=== PATIENT | female | born 1945 | race Caucasian/White ===

== ENCOUNTER → 2023-04-08 16:56 | Outpatient (REF) | payer MEDICARE, SELFPAY | LOC: HWRAD 16:56 | PROVIDERS: ATTENDING PHYSICIAN Internal Medicine Critical Care Medicine; FAMILY PHYSICIAN Family Medicine | DX: R06.02 Shortness of breath (principal); J90 Pleural effusion, not elsewhere classified | CPT/HCPCS: 71046 ==

== ENCOUNTER → 2023-04-17 10:34 | Outpatient (REF) | payer OTHER, SELFPAY ==
[2023-04-17 11:18] VITALS: BP 123/67; BP_SYST 87
[2023-04-17 12:14] VITALS: BP 118/58; BP_SYST 87
[2023-04-17 12:35] LABS: Body Fluid Mononuclear 90.9 %; Body Fluid Polymorphonuclear 9.1 %; Body Fluid WBC 263 /CUMM
[2023-04-17 12:41] LABS: Body Fluid Second Tech BD
[2023-04-17 13:07] LABS: Body Fluid Glucose 101 mg/dl; Body Fluid Protein 3.6 g/dl
[2023-04-17 14:28] LABS: Body Fluid LDH 121 U/L
== END ==
LOC: RADI 10:34
PROVIDERS: ATTENDING PHYSICIAN Internal Medicine Critical Care Medicine; FAMILY PHYSICIAN Family Medicine
DX: J90 Pleural effusion, not elsewhere classified (principal)
CPT/HCPCS: 88305; 32555; 71045; 82945; 83615; 83986; 84157; 87015; 87070; 87102; 87116; 87205; 87206; 88112; 88341; 88342; 89051

== ENCOUNTER → 2023-05-13 12:23 | Outpatient (REF) | payer OTHER, SELFPAY | LOC: HWRAD 12:23 | PROVIDERS: ATTENDING PHYSICIAN Internal Medicine Critical Care Medicine; FAMILY PHYSICIAN Family Medicine | DX: J90 Pleural effusion, not elsewhere classified (principal); R06.02 Shortness of breath; J98.4 Other disorders of lung; R06.89 Other abnormalities of breathing | CPT/HCPCS: 71046 ==

== ENCOUNTER → 2023-06-14 13:59 | Outpatient (REF) | payer OTHER, SELFPAY | LOC: HWRAD 13:59 | PROVIDERS: ATTENDING PHYSICIAN Internal Medicine Critical Care Medicine; FAMILY PHYSICIAN Family Medicine | DX: J90 Pleural effusion, not elsewhere classified (principal); R06.02 Shortness of breath | CPT/HCPCS: 71046 ==

== ENCOUNTER → 2023-07-17 12:31 | Outpatient (REF) | payer OTHER, SELFPAY ==
[2023-07-17 18:41] LABS: % Basophils 0.7 % (0-2); % Eosinophils 0.7 % (0-6); % Immature Granulocytes 0.3 % (0-0.5); % Lymphocytes 12.5 % (20.5-51.1); % Monocytes 4.2 % (1.7-9.3); % Neutrophils 81.6 % (42.2-75.2); Absolute Basophils 0.1 10^3/uL (0-0.2); Absolute Eosinophils 0.1 10^3/uL (0-0.7); Absolute Lymphocytes 0.9 10^3/uL (1.2-3.4); Absolute Monocytes 0.3 10^3/uL (0.1-0.6); Absolute Neutrophils 5.7 10^3/uL (1.4-6.5); Hematocrit 37.2 % (37.0-47.0); Hemoglobin 10.8 g/dL (12.0-16.0); Mean Corpuscular Hgb 22.3 pg (27.0-31.0); Mean Corpuscular Volume 76.9 fL (81.0-99.0); Mean Platelet Volume 8.4 fL (7.4-10.4); Nucleated Red Blood Cells % 0 %; Platelet Count 315 10^3/uL (130-400); Red Blood Cell Count 4.84 10^6/uL (4.20-5.40); Red Cell Dist. Width 20.6 % (11.5-14.5)
[2023-07-17 18:54] LABS: ALT (SGPT) 12 U/L (0-35); AST (SGOT) 22 U/L (14-36); Albumin 4.2 g/dl (3.5-5.0); Alkaline Phosphatase 79 U/L (38-126); Blood Urea Nitrogen 15 mg/dl (7-17); Calcium 9.2 mg/dl (8.4-10.2); Carbon Dioxide 28 mmol/L (22-30); Chloride 105 mmol/L (98-107); Glucose 102 mg/dl (70-99); HDL Cholesterol 70 mg/dl; Iron 34 ug/dl (37-170); LDL Cholesterol, Calculated 86 mg/dl; Potassium 5.1 mmol/L (3.5-5.1); Sodium 139 mmol/L (135-145); Total Bilirubin 0.3 mg/dl (0.2-1.3); Total Cholesterol 185 mg/dl (50-199); Total Protein 6.6 g/dl (6.3-8.2); Triglyceride 148 mg/dl (10-149); Very Low Density Lipoprotein 29 mg/dl (0-30); eGFR > 60.00
[2023-07-17 19:03] LABS: Percent Saturation 7 % (20-50); Total Iron Binding Capacity 436 ug/dl (265-497)
[2023-07-17 19:28] LABS: Ferritin 13.9 ng/ml (11.1-264.0)
== END ==
LOC: CLAB 12:31
PROVIDERS: ATTENDING PHYSICIAN Family Medicine
DX: Z12.31 Encounter for screening mammogram for malignant neoplasm of breast (principal); M79.7 Fibromyalgia; E87.1 Hypo-osmolality and hyponatremia; E03.9 Hypothyroidism, unspecified; I25.10 Atherosclerotic heart disease of native coronary artery without angina pectoris; J90 Pleural effusion, not elsewhere classified; I25.810 Atherosclerosis of coronary artery bypass graft(s) without angina pectoris; I31.39 Other pericardial effusion (noninflammatory); U09.9 Post COVID-19 condition, unspecified
CPT/HCPCS: 36415; 80053; 80061; 82728; 83540; 83550; 84443; 85025

== ENCOUNTER → 2024-02-21 10:46 | Outpatient (REF) | payer OTHER, SELFPAY ==
[2024-02-21 12:50] VITALS: BP 166/88; BP_SYST 86
[2024-02-21] MEDS: TYLENOL 650 MG PO (13:32)
== END ==
LOC: RADI 10:46
PROVIDERS: ATTENDING PHYSICIAN Internal Medicine Critical Care Medicine; FAMILY PHYSICIAN Family Medicine
DX: J90 Pleural effusion, not elsewhere classified (principal); R06.02 Shortness of breath
CPT/HCPCS: 32555; 71045; 71046

== ENCOUNTER → 2024-04-17 12:58 | Outpatient (REF) | payer OTHER, SELFPAY ==
[2024-04-17 15:29] LABS: % Basophils 0.9 % (0-2); % Eosinophils 1.2 % (0-6); % Immature Granulocytes 0.3 % (0-0.5); % Lymphocytes 21.6 % (20.5-51.1); % Monocytes 5.8 % (1.7-9.3); % Neutrophils 70.2 % (42.2-75.2); Absolute Basophils 0.1 10^3/uL (0-0.2); Absolute Eosinophils 0.1 10^3/uL (0-0.7); Absolute Lymphocytes 1.4 10^3/uL (1.2-3.4); Absolute Monocytes 0.4 10^3/uL (0.1-0.6); Absolute Neutrophils 4.7 10^3/uL (1.4-6.5); Hematocrit 41.6 % (37.0-47.0); Hemoglobin 13.1 g/dL (12.0-16.0); Mean Corp Hgb Conc. 31.5 g/dL (33.0-37.0); Mean Corpuscular Hgb 27.8 pg (27.0-31.0); Mean Corpuscular Volume 88.1 fL (81.0-99.0); Mean Platelet Volume 8.2 fL (7.4-10.4); Nucleated Red Blood Cells % 0 %; Platelet Count 274 10^3/uL (130-400); Red Blood Cell Count 4.72 10^6/uL (4.20-5.40); Red Cell Dist. Width 14.6 % (11.5-14.5); White Blood Cell Count 6.7 10^3/uL (4.8-10.8)
[2024-04-17 15:39] LABS: ALT (SGPT) 16 U/L (0-35); AST (SGOT) 21 U/L (14-36); Albumin 4.3 g/dl (3.5-5.0); Alkaline Phosphatase 80 U/L (38-126); Calcium 9.3 mg/dl (8.4-10.2); Carbon Dioxide 30 mmol/L (22-30); Chloride 101 mmol/L (98-107); Glucose 91 mg/dl (70-99); Potassium 4.9 mmol/L (3.5-5.1); Sodium 137 mmol/L (135-145); Total Bilirubin 0.7 mg/dl (0.2-1.3); Total Protein 6.5 g/dl (6.3-8.2); eGFR > 60.00
[2024-04-17 15:42] LABS: C-Reactive Protein < 5.00 mg/L (0.0-10.00)
[2024-04-17 15:48] LABS: Blood Urea Nitrogen 25 mg/dl (7-17)
[2024-04-17 15:58] LABS: Vitamin D, 25-OH*** < 12.8 ng/mL (30-80)
[2024-04-20 07:46] LABS: ANA, IgG Reflex to HEp-2 None Detected (None Detected)
== END ==
LOC: HWRAD 12:58
PROVIDERS: ATTENDING PHYSICIAN Internal Medicine Rheumatology; FAMILY PHYSICIAN Family Medicine
DX: G24.8 Other dystonia (principal); G89.4 Chronic pain syndrome; M19.022 Primary osteoarthritis, left elbow; M25.512 Pain in left shoulder; E55.9 Vitamin D deficiency, unspecified; G47.33 Obstructive sleep apnea (adult) (pediatric); J90 Pleural effusion, not elsewhere classified; M35.9 Systemic involvement of connective tissue, unspecified
CPT/HCPCS: 36415; 73030; 73080; 80053; 82306; 85025; 86038; 86140; 86430; 86618

== ENCOUNTER 2024-05-03 14:40 | Emergency (ER) | payer OTHER, SELFPAY ==
[2024-05-03 14:47] VITALS: BP 160/85
[2024-05-03 16:00] VITALS: BP 149/74
--- NOTE | 2024-05-03 16:51 | ED.GENMED ---
History of Present Illness
General
Chief Complaint: Musculo-Skeletal Complaint
Source: patient
Exam Limitations: none
Time Seen by Provider: 05/03/24 16:29
Nursing documentation reviewed up to this point in time: agreed with
History of Present Illness
History of Present Illness:
78-year-old female with past medical history of A-fib on Eliquis, coronary artery disease, GERD, who presents emergency department today with concerns of right hip pain for the past week. Patient states that this started all started when she was
sitting on the couch at her home, she states that there was no trauma inciting the pain. She denies any recent falls. She states that she has tried Tylenol, Motrin without relief. Patient states that she feels the pain in the right hip/buttocks
area and will radiate to the upper thigh. Patient denies any back pain. Patient denies any urinary symptoms or hematuria, denies any belly pain, nausea or vomiting. Patient states that she has had similar hip pain in the past which has resolved
with [id number] medications but this pain is not resolving and seems more intense. She is able to ambulate and bear weight without difficulty. She denies any low back pain, she denies any weakness in her lower extremities, she denies any
lower extremity paresthesias, denies any loss of bowel or bladder.
Past History
Past History
ED Past Medical History: Arrthythmia (A-fib on Eliquis), CAD, CHF, GERD, HTN, Hypercholesterolemia, Other (Recurrent pleural effusion) and Other (Sleep apnea with BiPAP,)
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 Pleural catheter left chest wall 07/2022) and Orthopedic
Social History
Tobacco: Non-smoker
Personal:
Living: with family
Review of Systems
Review of Systems
All Other Systems: ROS reviewed and negative except as documented in HPI and ROS
Phy Exam
Physical Exam
Physical Exam:
General: Patient is well appearing and in no acute distress; non-toxic
Skin: Warm and dry, no rashes or lesions
Head: Normocephalic, atraumatic
Eyes: Sclera non-icteric. EOMs intact.
Cardiac: Regular rate and rhythm, no murmurs
Peripheral Vascular: 2+ dorsalis pedis and posterior tibial pulses bilaterally. Lower limbs symmetrical, no discoloration or swelling.
Pulm: Normal respiratory effort
Abdomen: No abdominal tenderness to palpation
Musculoskeletal: Full range of motion of bilateral lower extremities. Normal gait. Mild pain with hip flexion, no pain with internal/external rotation. No palpable bony deformities.
Neuro: CN II-XII intact, no focal neurologic deficits. Sensation intact.
Psychiatric: Appropriate mood and affect.
Course
Orders/Labs/Results
Orders:
Orders
05/03/24 17:01
CR Hip - RT w/wo Pel 2-3 Vw* Urgent
Comment:
Reason For Exam: atraumatic right hip and gluteal pain
Include a pelvis x-ray?: Yes
05/03/24 18:46
Dexamethasone [Decadron] 10 mg PO NOW STA
Vital Signs
Initial and Last Documented VS:
Initial Vital Signs
Temp Pulse Resp BP Pulse Ox
97.4 F 84 20 160/85 98
05/03/24 14:47 05/03/24 14:47 05/03/24 14:47 05/03/24 14:47 05/03/24 14:47
Last Documented Vital Signs
Temp Pulse Resp BP Pulse Ox
97.4 F 74 16 149/74 98
05/03/24 14:47 05/03/24 16:00 05/03/24 16:00 05/03/24 16:00 05/03/24 16:00
MDM/Problems Addressed
Differential Diagnosis Includes:
Differentials include bursitis, herniated disc, musculoskeletal sprain/strain, femoral neck fracture, contusion, nephrolithiasis
MDM/Problems Addressed:
78-year-old female past medical history of A-fib, coronary artery disease, presents emergency department today with concerns of atraumatic right hip pain. X-ray negative for acute fracture or dislocation but does show moderate degenerative changes
of the right hip. Discussed findings with patient. In light of patient having a normal gait, normal range of motion on exam, asymmetric lower extremities, do not feel further imaging with CT is required at this time. Suspect a hip bursitis.
Discussed case with attending. Patient given a dose of Decadron here in emergency department will be sent home with tramadol, referral given for Ortho, discussed follow-up with primary care provider, patient stable for discharge.
*Pulse Oximetry
Patient hypoxic: no
*Critical Care Note
Total Time (30-74mins, 75-104mins- exclusive of procedures): Not Applicable
Data Reviewed
Review of Other/Old Records Reveals: Records (Reviewed previous ER physician documentation from 01/27/2023 patient seen for acute labyrinthitis)
ED Attending Note
-
Portions of this chart may have been created with voice recognition software.� Occasional wrong word or��sound alike� substitutions may have occurred due to the inherent limitations of voice recognition software.
Discharge Plan
Departure
Patient Disposition: Home (Routine Discharge)
Date of Disposition: 05/03/24
Time of Disposition: 19:16
Patient with high blood pressure during this ER visit?: Yes
Condition: Good
Discharge Problem:
Pain in right hip
Instructions: Hip Pain ED, BLOOD PRESSURE
Prescriptions:
New
tramadol 50 mg tablet
50 mg PO Q8H PRN (Reason: Pain) Qty: 12 0RF
No Action
cyclosporine [Restasis] 10 DROPS dropperette
1 drp BOTH EYES BID
melatonin 5 MG tablet
5 - 10 mg PO HS
ropinirole 1 mg Tablet
1 mg PO HS
Rx Instructions:
take 1 tab 1-3 hours before bedtime
albuterol sulfate 90 mcg/actuation Hfa Aerosol Inhaler
2 puff INHALATION Q4HPRN PRN (Reason: SOB)
Patient Comments:
in hospital when needed
azelastine-fluticasone [Dymista] 137-50 mcg/spray [place],Non-Aerosol
1 spray INTRANASAL BID PRN (Reason: allergies)
Patient Comments:
as needed
acetaminophen 500 MG tablet
500 mg PO Q6H PRN (Reason: pain)
Patient Comments:
as needed
cetirizine [Zyrtec] 10 mg Tablet
10 mg PO HS PRN (Reason: allergies)
aspirin 81 mg Tablet,Chewable
81 mg PO DAILY Qty: 30 1RF
furosemide 40 mg tablet
40 mg PO DAILY Qty: 30 0RF
dapagliflozin propanediol [Farxiga] 10 mg tablet
10 mg PO DAILY Qty: 30 0RF
ropinirole 1 mg Tablet
1 mg PO BID@1800,2100 PRN (Reason: restless leg symptoms)
potassium chloride 20 mEq tablet extended release
20 meq PO DAILY
Eliquis 5 mg Tablet
5 mg PO BID
meclizine 25 mg tablet
25 mg PO BID PRN (Reason: dizziness) Qty: 10 0RF
duloxetine 30 mg Capsule,Delayed Release(Dr/Ec)
30 mg PO DAILY
prednisone 1 mg Tablet
1 mg PO DAILY
Rx Instructions:
alternating with 1.5mg every other day
colchicine 0.6 mg Capsule
0.6 mg PO BID
Referrals:
Zafar Tirado MD [Family Provider] -
Daniel Sharp MD [Active] - Call in 1-3 days for appt
Activity Restrictions/Additional Instructions:
Please call attached number to schedule appointment with Dr. Sharp office.
Tramadol has been sent to your pharmacy. You can take 1 tablet every 6 hours as needed for pain. You can also continue the Tylenol with this as well as topical lidocaine patches over the affected area. I recommend stopping taking ibuprofen as
this can increase risk of bleeding since you are also taking Eliquis. Tramadol as a side effect of making you constipated. I recommend taking MiraLAX with this.
PLEASE RETURN EMERGENCY DEPARTMENT SHOULD YOU DEVELOP UNILATERAL SWELLING IN HER LOWER EXTREMITY, INABILITY TO AMBULATE, LOSS OF SENSATION, LOSS OF BOWEL OR BLADDER FUNCTION, GENITAL PARESTHESIAS, ANY OTHER SIGNS OR SYMPTOMS WORRISOME TO YOU.
Interventions
Interventions:
*Risk Screen - Suicide Last Done: 05/03/24 16:03
*General Assessment Last Done: 05/03/24 16:03
*Neglect/Abuse Screening Last Done: 05/03/24 16:03
*ED- Fall Risk Assessment Last Done: 05/03/24 16:03
ED-Musculoskeletal Assessment Last Done: 05/03/24 16:03
Discharge Date and Time
Print Language: FILIPINO
[2024-05-03] MEDS: DECADRON 10 MG PO (19:01)
== END 2024-05-03 20:00 | disposition home or self-care (01) ==
LOC: EMR 14:40
PROVIDERS: EMERGENCY PHYSICIAN Emergency Medicine; FAMILY PHYSICIAN Family Medicine
DX: M25.551 Pain in right hip (principal); I48.91 Unspecified atrial fibrillation; I25.10 Atherosclerotic heart disease of native coronary artery without angina pectoris; M16.11 Unilateral primary osteoarthritis, right hip; K21.9 Gastro-esophageal reflux disease without esophagitis; I11.0 Hypertensive heart disease with heart failure; I50.9 Heart failure, unspecified; G47.30 Sleep apnea, unspecified; E78.00 Pure hypercholesterolemia, unspecified; Z79.01 Long term (current) use of anticoagulants; Z95.2 Presence of prosthetic heart valve; Z95.1 Presence of aortocoronary bypass graft; Z88.2 Allergy status to sulfonamides; Z88.8 Allergy status to other drugs, medicaments and biological substances
CPT/HCPCS: 99283; 73502

== ENCOUNTER 2024-07-30 16:51 | Emergency (ER) | payer OTHER, SELFPAY ==
[2024-07-30 16:56] VITALS: BP 127/77
--- NOTE | 2024-07-30 20:09 | ED.GENMED ---
History of Present Illness
General
Chief Complaint: Skin Surface Trauma
Time Seen by Provider: 07/30/24 19:31
History of Present Illness
History of Present Illness:
Patient lost her balance carrying a pot into her house. Fell cutting her right arm with the piece of ceramic from the pot. No head injury or other complaint. She has no physical complaints at this time. Last tetanus is unknown. No head injury.
She is anticoagulated.
Past History
Past History
ED Past Medical History: Arrthythmia (A-fib on Eliquis), CAD, CHF, GERD, HTN, Hypercholesterolemia, Other (Recurrent pleural effusion) and Other (Sleep apnea with BiPAP,)
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 Pleural catheter left chest wall 07/2022) and Orthopedic
Social History
Tobacco: Non-smoker
Personal:
Living: with family
Review of Systems
Review of Systems
All Other Systems: Not applicable
ABD/GI: Reports no symptoms
Neurological: Reports no symptoms
Phy Exam
Physical Exam
Physical Exam:
GENERAL: Alert and oriented in no apparent distress. Normocephalic
EYE: Orbits normal.
NECK: Supple, nontender.
LUNGS: No respiratory distress. No chest wall tenderness
NEUROLOGICAL: Alert and oriented , grossly non-focal
SKIN: Warm and dry, large laceration to the right forearm. Abrasion to the right wrist
MUSCULOSKELETAL: No edema,no deformity.Good color. No bony tenderness. Motor or sensory neurovascular intact
PSYCH: Normal and appropriate interaction.
Course
Orders/Labs/Results
Orders:
Orders
07/30/24 20:22
Tetanus/Diphth/Acelpertussis [Adacel] 0.5 ml IM .ONCE ONE
Vital Signs
Initial and Last Documented VS:
Initial Vital Signs
Temp Pulse Resp BP Pulse Ox
98.3 F 91 16 127/77 95
07/30/24 16:56 07/30/24 16:56 07/30/24 16:56 07/30/24 16:56 07/30/24 16:56
Last Documented Vital Signs
Temp Pulse Resp BP Pulse Ox
98.3 F 91 16 127/77 95
07/30/24 16:56 07/30/24 16:56 07/30/24 16:56 07/30/24 16:56 07/30/24 16:56
Procedures
Laceration Closure
Right Volar Arm:
Status of Wound: clean
Size of Wound in cm: 8
Description of Wound Edges: sharp
Preparation: cleaned with saline and cleaned with Betadine
Anesthesia: 1% Lidocaine with epi
Revision/Debridement: routine- no revision
Wound exploration: explored to base- no FB
Type of Closure: single layer closure and mattress sutures
Skin Closure Material: 4-0 nylon
Number of sutures: 16
MDM/Problems Addressed
Differential Diagnosis Includes:
No head injury or indication for radiologic testing. Laceration repair tetanus shot and follow-up. No bony injury.
*Pulse Oximetry
Patient hypoxic: no
*Critical Care Note
Total Time (30-74mins, 75-104mins- exclusive of procedures): Not Applicable
ED Attending Note
-
Portions of this chart may have been created with voice recognition software.� Occasional wrong word or��sound alike� substitutions may have occurred due to the inherent limitations of voice recognition software.
Discharge Plan
Departure
Patient Disposition: Home (Routine Discharge)
Date of Disposition: 07/30/24
Time of Disposition: 20:12
Patient with high blood pressure during this ER visit?: Yes
Discharge Problem:
Right forearm laceration, Right hand abrasion
Instructions: Laceration Repair With Stitches (DC), BLOOD PRESSURE
Prescriptions:
No Action
cyclosporine [Restasis] 10 DROPS dropperette
1 drp BOTH EYES BID
melatonin 5 MG tablet
5 - 10 mg PO HS
ropinirole 1 mg Tablet
1 mg PO HS
Rx Instructions:
take 1 tab 1-3 hours before bedtime
albuterol sulfate 90 mcg/actuation Hfa Aerosol Inhaler
2 puff INHALATION Q4HPRN PRN (Reason: SOB)
Patient Comments:
in hospital when needed
azelastine-fluticasone [Dymista] 137-50 mcg/spray [place],Non-Aerosol
1 spray INTRANASAL BID PRN (Reason: allergies)
Patient Comments:
as needed
acetaminophen 500 MG tablet
500 mg PO Q6H PRN (Reason: pain)
Patient Comments:
as needed
cetirizine [Zyrtec] 10 mg Tablet
10 mg PO HS PRN (Reason: allergies)
aspirin 81 mg Tablet,Chewable
81 mg PO DAILY Qty: 30 1RF
furosemide 40 mg tablet
40 mg PO DAILY Qty: 30 0RF
dapagliflozin propanediol [Farxiga] 10 mg tablet
10 mg PO DAILY Qty: 30 0RF
ropinirole 1 mg Tablet
1 mg PO BID@1800,2100 PRN (Reason: restless leg symptoms)
potassium chloride 20 mEq tablet extended release
20 meq PO DAILY
Eliquis 5 mg Tablet
5 mg PO BID
meclizine 25 mg tablet
25 mg PO BID PRN (Reason: dizziness) Qty: 10 0RF
duloxetine 30 mg Capsule,Delayed Release(Dr/Ec)
30 mg PO DAILY
prednisone 1 mg Tablet
1 mg PO DAILY
Rx Instructions:
alternating with 1.5mg every other day
colchicine 0.6 mg Capsule
0.6 mg PO BID
tramadol 50 mg tablet
50 mg PO Q8H PRN (Reason: Pain) Qty: 12 0RF
Referrals:
Zafar Tirado MD [Family Provider, Family Practice] - Follow up in 2-3 days
Activity Restrictions/Additional Instructions:
Suture removal in 7 to 10 days
Interventions
Interventions:
*Risk Screen - Suicide Last Done: 07/30/24 16:57
*General Assessment Last Done: 07/30/24 19:32
*Neglect/Abuse Screening Last Done: 07/30/24 16:57
*ED- Fall Risk Assessment Last Done: 07/30/24 19:32
*ED COVID-19 Vaccine History Last Done: 07/30/24 19:32
*Nursing Disposition Last Done: 07/30/24 20:36
ED-Skin Assessment Last Done: 07/30/24 19:32
Discharge Date and Time
Discharge Date/Time: 07/30/24 20:37
Print Language: SLOVENIAN
[2024-07-30] MEDS: ADACEL 0.5 ML IM (20:29)
== END 2024-07-30 20:37 | disposition home or self-care (01) ==
LOC: EMR 16:51
PROVIDERS: EMERGENCY PHYSICIAN Emergency Medicine; FAMILY PHYSICIAN Family Medicine
DX: S60.511A Abrasion of right hand, initial encounter (principal); S51.811A Laceration without foreign body of right forearm, initial encounter; W19.XXXA Unspecified fall, initial encounter; I11.0 Hypertensive heart disease with heart failure; I50.9 Heart failure, unspecified; Z23 Encounter for immunization
CPT/HCPCS: 99282; 12004; 90471; 90715